=== PATIENT | male | born 2000 | race African-American/Black ===

== ENCOUNTER 2018-10-19 20:19 | Emergency (ER) | payer BC ==
[~2018-10-19] VITALS: Ht 172.7 cm; Wt 59.0 kg
[2018-10-19] MEDS ORDERED: ONDANSETRON ODT 4 MG TAB.RAPDIS ONE (21:11)
[2018-10-19] MEDS ORDERED: ASPIRIN 81 MG TAB.CHEW ONE (21:11)
[2018-10-19] MEDS ORDERED: OXYCODONE/APAP 5-325 MG TABLET ONE (21:13)
[2018-10-19] MEDS ORDERED: ASPIRIN 81 MG TAB.CHEW PO ONE (21:15)
[2018-10-19] MEDS ORDERED: ONDANSETRON ODT 4 MG TAB.RAPDIS SL ONE (21:15)
[2018-10-19] MEDS ORDERED: OXYCODONE/APAP 5-325 MG TABLET PO ONE (21:15)
[2018-10-19 21:23] LABS: BASOPHILS % (AUTO) 0.2 % (0.0-2.0); EOSINOPHILS # (AUTO) 0.1 K/uL (0.0-0.7); EOSINOPHILS % (AUTO) 0.9 % (0.0-7.0); HEMATOCRIT 45.6 % (36.7-47.1); HEMOGLOBIN 15.6 g/dL (12.5-16.3); LYMPHOCYTES # (AUTO) 2.1 K/uL (20.0-40.0); MEAN CORPUSCULAR HEMOGLOBIN 32.2 uug (23.8-33.4); MEAN CORPUSCULAR HGB CONC 34 g/dL (32.5-36.3); MEAN CORPUSCULAR VOLUME 94.4 fL (73.0-96.2); MONOCYTES # (AUTO) 0.5 K/uL (2.0-10.0); MONOCYTES % (AUTO) 5.3 % (0-11); NEUTROPHILS # (AUTO) 6.9 K/uL (1.8-8.9); NEUTROPHILS % (AUTO) 71.6 % (31.5-64.5); PLATELET COUNT (AUTO) 258 K/uL (152-348); RED BLOOD CELL COUNT(AUTO) 4.83 MIL/uL (4.06-5.63); WHITE BLOOD COUNT (AUTO) 9.6 K/uL (3.6-10.2)
[2018-10-19 21:30] LABS: CARBON DIOXIDE 28 mmol/L (21-32); CHLORIDE 100 mmol/L (98-107); GLUCOSE 92 mg/dL (74-106); POTASSIUM 3.5 mmol/L (3.5-5.1); UREA NITROGEN, BLOOD 18 mg/dL (7-18)
[2018-10-19 21:43] LABS: ALANINE AMINOTRANSFERASE 32 U/L (16-63); ALKALINE PHOSPHATASE 64 U/L (50-136); ASPARTATE AMINOTRANSFERASE 40 U/L (15-37); BILIRUBIN,DIRECT 0.4 mg/dL (0.0-0.2); BILIRUBIN,TOTAL 1.3 mg/dL (0.2-1.0); TOTAL PROTEIN, SERUM 8.1 g/dL (6.4-8.2)
--- NOTE | 2018-10-19 23:00 | NUR ---
Patient laying on gurny with no distress noted interacting with friend.
--- NOTE | 2018-10-20 00:57 | NUR ---
IV removed. Catheter intact and site benign. Pressure and 4x4 gauze applied to site. No bleeding noted.
--- NOTE | 2018-10-20 01:02 | NUR ---
Patient discharged to home in stable conditon. Written and verbal after care instructions given. Patient verbalizes understanding of instructions. walked out of ER with no distress noted.
[2018-10-20 01:03] VITALS: BP 145/77
== END 2018-10-20 01:05 | disposition home or self-care (01) ==
LOC: ER 20:20
DX: R06.00 Dyspnea, unspecified (principal); R07.9 Chest pain, unspecified; F12.10 Cannabis abuse, uncomplicated; F17.200 Nicotine dependence, unspecified, uncomplicated; Z88.0 Allergy status to penicillin
CPT/HCPCS: 36415; 70030-TC; 71045; 85025; 93005; A4663; Q0162